=== PATIENT | male | born 1960 | race Caucasian/White ===

== ENCOUNTER → 2016-04-09 | Outpatient (CLI) | payer MEDICARE ==
[~2016-04-09] MED LIST: BACTRIM DS 8001 TAB PO; BENTYL10 M1 PO; CIPRO 500MG TA500 MG PO; FLAGYL 500MG.500 MG PO; FLEXERIL10 MG PO; LORATADINE10 MG OR; MEDROL 4MG. DOSE4 MG PO; NOMEDS XX; PERCOCET1 TA1 PO; VICODIN 7.5/501 EACH PO
[2016-04-09 20:35] LABS: AMPHETAMINES/METAMPHETAMINES NEGATIVE ng/mL (<1000)
== END ==
LOC: LAB 19:57
PROVIDERS: Emergency Medicine
DX: Z79.899 Other long term (current) drug therapy (principal)

== ENCOUNTER → 2016-11-16 | Outpatient (CLI) | payer MEDICARE ==
[2016-11-16 12:53] LABS: AMPHETAMINES/METAMPHETAMINES NEGATIVE ng/mL (<1000)
[2016-11-26 14:40] LABS: Opiates Negative (Cutoff=100)
== END ==
LOC: LAB 11:57
PROVIDERS: Emergency Medicine
DX: Z79.899 Other long term (current) drug therapy (principal)